=== PATIENT | male | born 1955 | race Caucasian/White ===

== ENCOUNTER 2016-10-07 02:03 | Inpatient (IN) | payer OTHER ==
[~2016-10-07] VITALS: Ht 182.9 cm; Wt 108.9 kg
[~2016-10-07 02:03] MED LIST: ASPI-496 PO; ASPI325T4 PO; BENA10TA2 PO; BENA20TA2 PO; BUPR1FIL3 SL; CHOL2000 PO; CLOP75TA22 PO; CLOT15CR6 TP; CYCL-259 PO; DICY10CA3 PO; DULO60CA7 PO; GABA600T2 PO; HUMULIN R U500 SC; INSU100V13 SC; INSU100V5 SQ-INSULIN; LIRA0.6P2 SQ; NAPR220C PO; NITR0.4T SL; NITR0.4T8 SL; ONDA4TAB13 SL; PRAS10TA4 PO; SIMV10TA3 PO; SUBOXONE SL; [UNRECOGNIZED DRUG - OTHER] SC
[2016-10-07] MEDS ORDERED: CLOTRIMAZOLE (02:20)
[2016-10-07] MEDS ORDERED: NITROGLYCERINE PO/NG (02:20)
[2016-10-07] MEDS ORDERED: SODIUM CHLORIDE 0.9% 1,000ML IVBOLUS ONE (02:30)
[2016-10-07 02:49] LABS: ASPARTATE AMINO TRANSFERASE 45 U/L (15-37); BLOOD UREA NITROGEN 41 mg/dL (7-18)
[2016-10-07 02:56] LABS: IS PT STATUS REG ER OR PRE ER? YES
[2016-10-07] MEDS ORDERED: LORazepam 2 MG/ML, 1ML ONE (03:58)
[2016-10-07] MEDS ORDERED: LORazepam 2 MG/ML, 1ML IVPush ONE (04:00)
[2016-10-07] MEDS ORDERED: SODIUM CHLORIDE 0.9% 1,000 ML IV ONE (04:04)
[2016-10-07] MEDS ORDERED: PROMETHAZINE 25 MG/ML, 1ML IM PRN ×2 (04:30→05:00)
[2016-10-07] MEDS ORDERED: ONDANSETRON 2MG/ML, 2ML IVPush PRN ×2 (04:30→05:00)
[2016-10-07] MEDS ORDERED: PROMETHAZINE 25 MG/ML, 1ML ONE (04:40)
[2016-10-07] MEDS ORDERED: SODIUM CHLORIDE 0.9% 1,000 ML IV SCH ×2 (04:52→14:00)
[2016-10-07] MEDS ORDERED: DEXTROSE 4 GM TAB.CHEW PO PRN (05:00)
[2016-10-07] MEDS ORDERED: DEXTROSE 50%, 50ML SYRINGE IVPush PRN (05:00)
[2016-10-07] MEDS ORDERED: LORazepam 2 MG/ML, 1ML IVPush PRN (05:00)
[2016-10-07] MEDS ORDERED: GLUCAGON 1 MG IM PRN (05:00)
[2016-10-07] MEDS ORDERED: LABETALOL 5MG/ML, 20ML IVPush PRN (05:00)
[2016-10-07] MEDS ORDERED: PROMETHAZINE 25 MG/ML, 1ML IM ONE (05:00)
[2016-10-07] MEDS ORDERED: METOCLOPRAMIDE 5 MG/ML, 2ML IVPush PRN (05:00)
[2016-10-07] MEDS ORDERED: PHARMACY MAY ADJ FOR RENAL FX MC PRN (05:00)
[2016-10-07] MEDS ORDERED: morphine SULFATE 10 MG/ML, 1ML IVPush PRN (05:00)
[2016-10-07] MEDS ORDERED: HEPARIN 5,000 UNITS/ML, 1ML ONE (05:52)
[2016-10-07] MEDS: INSULIN DETEMIR 100 UNITS/ML, PEN SQ-INSULIN SCH ×2 (06:02→18:00)
[2016-10-07 06:03] LABS: IS PT STATUS REG ER OR PRE ER? YES
[2016-10-07] MEDS: HEPARIN 5,000 UNITS/ML, 1ML SQ SCH ×3 (06:03→22:42)
[2016-10-07] MEDS: INSULIN ASPART 100 UNITS/ML, PEN SQ-INSULIN SCH ×4 (07:00→21:00)
[2016-10-07 08:59] LABS: PATH.CAST-FLAG NOT PRESENT; SPERM-FLAG NOT PRESENT; SRC-FLAG NOT PRESENT; XTAL-FLAG NOT PRESENT; YLC-FLAG NOT PRESENT
[2016-10-07 11:19] LABS: IS PT STATUS REG ER OR PRE ER? YES
[2016-10-07 12:35] VITALS: BP 121/72
[2016-10-07] MEDS: CLOPIDOGREL 75 MG TABLET PO SCH (13:22)
[2016-10-07] MEDS: DULOXETINE 30 MG CAPSULE.DR PO SCH ×2 (13:22→22:42)
[2016-10-07] MEDS: GABAPENTIN 300 MG CAPSULE PO SCH ×2 (13:22→22:41)
[2016-10-07] MEDS: SODIUM CHLORIDE FLUSH 10ML SYR IVF SCH ×2 (13:24→22:42)
[2016-10-07] MEDS: INSULIN REGULAR 100 UNITS/ML, 3ML VIAL SQ-INSULIN SCH ×3 (13:28→22:54)
[2016-10-07 15:08] VITALS: BP 109/70
[2016-10-07] MEDS: metroNIDAZOLE 500 MG TABLET PO SCH ×2 (15:16→22:42)
[2016-10-07] MEDS: CIPROFLOXACIN 500 MG TABLET PO SCH (15:16)
[2016-10-07 19:41] VITALS: BP 107/73
[2016-10-08 01:03] VITALS: BP 108/76
[2016-10-08] MEDS: metroNIDAZOLE 500 MG TABLET PO SCH ×3 (06:42→21:41)
[2016-10-08 06:53] LABS: ASPARTATE AMINO TRANSFERASE 67 U/L (15-37); BLOOD UREA NITROGEN 28 mg/dL (7-18)
[2016-10-08 07:11] VITALS: BP 131/78
[2016-10-08] MEDS: INSULIN ASPART 100 UNITS/ML, PEN SQ-INSULIN SCH ×4 (08:07→21:00)
[2016-10-08] MEDS: INSULIN REGULAR 100 UNITS/ML, 3ML VIAL SQ-INSULIN SCH ×3 (08:08→21:51)
[2016-10-08] MEDS: HEPARIN 5,000 UNITS/ML, 1ML SQ SCH ×3 (08:12→21:43)
[2016-10-08] MEDS: INSULIN DETEMIR 100 UNITS/ML, PEN SQ-INSULIN SCH ×2 (08:13→21:51)
[2016-10-08] MEDS: CLOPIDOGREL 75 MG TABLET PO SCH (08:13)
[2016-10-08] MEDS: GABAPENTIN 300 MG CAPSULE PO SCH ×2 (08:13→21:39)
[2016-10-08] MEDS: DULOXETINE 30 MG CAPSULE.DR PO SCH ×2 (08:13→21:00)
[2016-10-08] MEDS: SODIUM CHLORIDE FLUSH 10ML SYR IVF SCH ×2 (08:14→21:40)
[2016-10-08] MEDS ORDERED: BUPRENORPHINE/NALOXONE 8-2MG SL SCH (09:00)
[2016-10-08] MEDS: RIFAXIMIN 550 MG TABLET PO SCH ×2 (09:49→21:38)
[2016-10-08] MEDS: BUPRENORPHINE/NALOXONE 8-2MG SL SCH ×2 (09:50→21:00)
[2016-10-08] MEDS: CIPROFLOXACIN 500 MG TABLET PO SCH (12:18)
[2016-10-08 15:16] VITALS: BP 127/78
[2016-10-08 19:23] VITALS: BP 129/83
[2016-10-09 04:44] VITALS: BP 171/85
[2016-10-09] MEDS: metroNIDAZOLE 500 MG TABLET PO SCH (06:35)
[2016-10-09] MEDS: INSULIN ASPART 100 UNITS/ML, PEN SQ-INSULIN SCH ×2 (07:00→11:00)
[2016-10-09] MEDS ORDERED: INSULIN DETEMIR 100 UNITS/ML, PEN SQ-INSULIN SCH (09:00)
[2016-10-09 09:04] VITALS: BP 147/80
[2016-10-09] MEDS: HEPARIN 5,000 UNITS/ML, 1ML SQ SCH (09:05)
[2016-10-09] MEDS: SODIUM CHLORIDE FLUSH 10ML SYR IVF SCH (09:06)
[2016-10-09] MEDS: BUPRENORPHINE/NALOXONE 8-2MG SL SCH (09:07)
[2016-10-09] MEDS: INSULIN REGULAR 100 UNITS/ML, 3ML VIAL SQ-INSULIN SCH (09:07)
[2016-10-09] MEDS: GABAPENTIN 300 MG CAPSULE PO SCH (09:08)
[2016-10-09] MEDS: RIFAXIMIN 550 MG TABLET PO SCH (09:08)
[2016-10-09] MEDS: DULOXETINE 30 MG CAPSULE.DR PO SCH (09:08)
[2016-10-09] MEDS: CLOPIDOGREL 75 MG TABLET PO SCH (09:08)
[2016-10-09] MEDS: CIPROFLOXACIN 500 MG TABLET PO SCH (09:08)
[2016-10-09] MEDS ORDERED: METR500T PO (09:29)
[2016-10-09] MEDS ORDERED: CIPR500T87 PO (09:29)
[2016-10-09] MEDS ORDERED: RIFA550T PO (09:29)
== END 2016-10-09 12:30 | disposition home or self-care (01) | DRG 291 ==
LOC: ED 03:07 → EDIP 04:04 → 5SO 12:26
PROVIDERS: ADMIT Internal Medicine; ATTEND Family Medicine
DX: I13.0 Hypertensive heart and chronic kidney disease with heart failure and stage 1 through stage 4 chronic kidney disease, or unspecified chronic kidney disease (principal); N17.0 Acute kidney failure with tubular necrosis; E87.1 Hypo-osmolality and hyponatremia; I50.22 Chronic systolic (congestive) heart failure; K91.2 Postsurgical malabsorption, not elsewhere classified; E11.22 Type 2 diabetes mellitus with diabetic chronic kidney disease; E78.5 Hyperlipidemia, unspecified; E86.0 Dehydration; G43.909 Migraine, unspecified, not intractable, without status migrainosus; I25.10 Atherosclerotic heart disease of native coronary artery without angina pectoris; I49.3 Ventricular premature depolarization; K52.9 Noninfective gastroenteritis and colitis, unspecified; K59.03 Drug induced constipation; G89.29 Other chronic pain; W18.39XA Other fall on same level, initial encounter; M19.90 Unspecified osteoarthritis, unspecified site; N18.9 Chronic kidney disease, unspecified; T40.605A Adverse effect of unspecified narcotics, initial encounter; Z87.891 Personal history of nicotine dependence; Z90.49 Acquired absence of other specified parts of digestive tract; Z95.5 Presence of coronary angioplasty implant and graft; Y93.89 Activity, other specified; Y92.091 Bathroom in other non-institutional residence as the place of occurrence of the external cause; Y99.8 Other external cause status; Z88.0 Allergy status to penicillin; Z88.8 Allergy status to other drugs, medicaments and biological substances
CPT/HCPCS: 36415; 70450; 71010; 74176; 80053; 81001; 82962; 83690; 83735; 84100; 84484; 85025; 87324; 89055; 93005; 93306; 93880; 96372; 96374; J1644; J1815; J2550; J2060; J7030

== ENCOUNTER 2018-11-21 14:57 | Emergency (ER) | payer MEDICARE ==
[~2018-11-21] VITALS: Ht 182.9 cm; Wt 123.0 kg
[2018-11-21 14:59] VITALS: BP 154/80
== END 2018-11-21 16:18 | disposition home or self-care (01) ==
LOC: ED 16:12
DX: S90.212A Contusion of left great toe with damage to nail, initial encounter (principal); N28.9 Disorder of kidney and ureter, unspecified; L03.032 Cellulitis of left toe; E11.65 Type 2 diabetes mellitus with hyperglycemia; E11.00 Type 2 diabetes mellitus with hyperosmolarity without nonketotic hyperglycemic-hyperosmolar coma (NKHHC); I11.9 Hypertensive heart disease without heart failure; I25.10 Atherosclerotic heart disease of native coronary artery without angina pectoris; E78.5 Hyperlipidemia, unspecified; M19.90 Unspecified osteoarthritis, unspecified site; Z90.49 Acquired absence of other specified parts of digestive tract; Z87.891 Personal history of nicotine dependence; Z95.5 Presence of coronary angioplasty implant and graft; Z90.89 Acquired absence of other organs; X58.XXXA Exposure to other specified factors, initial encounter; Y93.89 Activity, other specified; Y92.009 Unspecified place in unspecified non-institutional (private) residence as the place of occurrence of the external cause; Y99.8 Other external cause status
CPT/HCPCS: 36415; 80048; 82040; 85025; 99284